=== PATIENT | female | born 1990 | race Two or more races ===

== ENCOUNTER 2018-08-26 12:07 | Emergency (ER) | payer SELFPAY ==
[~2018-08-26] VITALS: Ht 160 cm; Wt 59.0 kg
[2018-08-26 12:10] VITALS: BP 146/99
[2018-08-26] MEDS ORDERED: LIDOCAINE-MPF 1%, 5ML ONE (12:21)
[2018-08-26] MEDS ORDERED: LIDOCAINE-MPF 1%, 5ML INFIL ONE (12:30)
--- NOTE | 2018-08-26 13:17 | NUR ---
WOUND SUTURED BY EDPA, PT TOLERATED WELL. WOUND DRESSED , PT GIVEN DC INSTRUCTIONS AND SCRIPT, EDUCATED REGARDING DC RX FOR AUGMENTIN. PT A&O, RESPS EVEN AND UNLABORED, AMB TO DC DESK WITH STEADY GAIT.
== END 2018-08-26 13:19 | disposition home or self-care (01) ==
LOC: ED 13:13
DX: S61.012A Laceration without foreign body of left thumb without damage to nail, initial encounter (principal); X58.XXXA Exposure to other specified factors, initial encounter; Y93.89 Activity, other specified; Y92.009 Unspecified place in unspecified non-institutional (private) residence as the place of occurrence of the external cause; Y99.8 Other external cause status
CPT/HCPCS: 12041; 99284

== ENCOUNTER 2019-05-02 09:05 | Emergency (ER) | payer BC, OTHER ==
[~2019-05-02] VITALS: Ht 162.6 cm; Wt 60.0 kg
--- NOTE | 2019-05-02 09:46 | NUR ---
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
--- NOTE | 2019-05-02 10:14 | NUR ---
PT STATES SHE HAS HAD LESIONS IN HER MOUTH, THROAT FOR A MONTH, WORSENING RECENTLY. DIFFICULTY SWALLOWING SALIVA
[2019-05-02] MEDS ORDERED: SODIUM CHLORIDE FLUSH 10ML SYR IVF ONE (10:30)
[2019-05-02] MEDS ORDERED: LIDOCAINE 2% VISCOUS 15 ML UDC MM ONE (10:30)
[2019-05-02] MEDS ORDERED: SODIUM CHLORIDE 0.9% 1,000ML IVBOLUS ONE (10:30)
--- NOTE | 2019-05-02 10:46 | NUR ---
IV BOLUS INFUSING WITH LABS DRAWN.
[2019-05-02 11:08] LABS: BASOPHILS # (AUTO) 0.02 x10^3/uL (0-0.1); BASOPHILS % (AUTO) 1 % (0-1); EOSINOPHILS # (AUTO) 0.04 x10^3/uL (0-0.4); EOSINOPHILS % (AUTO) 1 % (1-7); LYMPHOCYTES # (AUTO) 1.63 x10^3/uL (1-3.4); LYMPHOCYTES % (AUTO) 30 % (22-44); MD NO; MEAN CORPUSCULAR HEMOGLOBIN 29.9 pg (27.0-34.8); MEAN CORPUSCULAR VOLUME 90.7 fL (80-100); MEAN PLATELET VOLUME 8.4 fL (7.4-10.4); MONOCYTES # (AUTO) 0.35 x10^3/uL (0.2-0.8); MONOCYTES % (AUTO) 6 % (2-9); NEUTROPHILS # (AUTO) 3.35 x10^3/uL (1.8-6.8); NEUTROPHILS % (AUTO) 62 % (42-75); PLATELET COUNT 318 x10^3/uL (130-400); RED BLOOD COUNT 4.97 x10^6/uL (3.82-5.3)
[2019-05-02 11:16] LABS: ALBUMIN 4.3 g/dL (3.4-5.0); ANION GAP 6 mmol/L (5-15); CALCIUM 8.8 mg/dL (8.5-10.1); CHLORIDE 106 mmol/L (98-107)
[2019-05-02 11:22] LABS: CREATININE 0.71 mg/dL (0.55-1.02)
[2019-05-02] MEDS ORDERED: LIDOCAINE 2% VISCOUS 15 ML UDC ONE ×2 (12:06→12:15)
[2019-05-02 12:18] VITALS: BP 119/82
--- NOTE | 2019-05-02 12:19 | NUR ---
MD AT BEDSIDE DISCUSSING PLAN OF CARE. PT HAS RELIEF WITH CAROLYNN OBRIEN.
== END 2019-05-02 12:42 | disposition home or self-care (01) ==
LOC: ED 10:46
DX: B08.5 Enteroviral vesicular pharyngitis (principal)
CPT/HCPCS: 36415; 80048; 82040; 85025; 87806; 99283; J7030; G0475